=== PATIENT | female | born 1940 | race Hispanic/Latino ===

== ENCOUNTER 2018-10-17 20:39 | Emergency (ER) | payer MEDICARE, BC ==
[2018-10-17 20:50] VITALS: RESP 16; O2SAT 100
[2018-10-17] MEDS ORDERED: Tdap Vaccine 0.5 ml Vial (10-64 yrs) IM ONE ×2 (21:29→22:26)
--- NOTE | 2018-10-17 22:00 | ED PDOC ---
HPI: Skin/Bite Injury Time Seen by Provider: 10/17/18 21:00 Chief Complaint (Nursing): Abnormal Skin Integrity Chief Complaint (Provider): Abnormal Skin Integrity History Per: Patient History/Exam Limitations: no limitations Onset/Duration Of Symptoms: Mins Current Symptoms Are (Timing): Still Present Additional Complaint(s): Patient is a 77 y/o female with a past medical history of rheumatoid arthritis who presents to the ED for evaluation of a laceration on the third digit of right hand, onset earlier tonight. Patient was opening a can when she sliced her finger on the can lid. Patient reports to have cleaned the cut with peroxide [employer]. Patient reports her finger is "sore" surrounding the laceration site. Of note, patient last received a Tetanus shot over ten years ago. PCP: Dr. Pierre Sosa Past Medical History Reviewed: Historical Data, Nursing Documentation, Vital Signs Vital Signs: Last Vital Signs Temp 97.4 F L 10/17/18 20:46 Pulse 98 H 10/17/18 20:46 Resp 16 10/17/18 20:46 BP 168/82 H 10/17/18 20:46 Pulse Ox 100 10/17/18 20:46 - Medical History PMH: Arthritis (RA ) - Surgical History Surgical History: Appendectomy, Tonsillectomy Other surgeries: hysterectomy - Family History Family History: States: No Known Family Hx - Immunization History Hx Tetanus Toxoid Vaccination: No (last received over ten years ago) - Home Medications Home Medications: Ambulatory Orders Medication Instructions Recorded Acetaminophen [Acetaminophen 8 650 mg PO Q8 PRN #21 tablet.er 10/17/18 Hour] - Allergies Allergies/Adverse Reactions: Allergies Allergy/AdvReac Type Severity Reaction Status Date / Time No Known Allergies Allergy Verified 10/17/18 20:46 Review of Systems ROS Statement: Except As Marked, All Systems Reviewed And Found Negative Musculoskeletal: Positive for: Hand Pain (right, third digit finger is sore) Skin: Positive for: Other (laceration on right, third digit finger of right hand) Physical Exam - Reviewed Nursing Documentation Reviewed: Yes Vital Signs Reviewed: Yes - Physical Exam Comments: GENERAL APPEARANCE: Patient is awake, alert, oriented x 3, resting comfortably. SKIN: Warm, dry; (-) cyanosis. EYES: (-) conjunctival pallor, (-) scleral icterus. ENMT: Mucous membranes moist. Airway patent, (-) stridor. NECK: Supple CHEST AND RESPIRATORY: (-) rales, (-) rhonchi, (-) wheezes; breath sounds equal bilaterally. Respirations even and nonlabored. HEART AND CARDIOVASCULAR: (-) irregularity EXTREMITIES: To the dorsum of right 3rd PIP there is a 0.75 cm linear, horizontal laceration (-) active bleeding (+) mild surrounding ecchymosis(-) effusion (-) tenderness (-) bony deformity (-) edema. Full ROM. Sensation and cap refill intact. NEURO AND PSYCH: Mental status as above; (-) focal findings. Gait: steady. Speech: clear. (-) facial asymmetry - ECG O2 Sat by Pulse Oximetry: 100 (RA) Pulse Ox Interpretation: Normal Medical Decision Making Medical Decision Making: Time: 2129 Impression: Finger Laceration Plan: Adacel 0.5 ml IM Dermabond Re-evaluation Time: 2134 Wound soaked in Saline and Betadine solution prior to Dermabond closure. Time: 2199 Wound closed with Dermabond by Giselle SIMMS. Patient tolerated procedure well; no complications. Educated on adhesive wound care. Patient placed in aluminum finger splint to minimize flexion as laceration site over DIP. Repeat BP: 154/80 Lab / Diagnostic results d/w the patient in great detail. Diagnosis of finger laceration d/w the patient. Based on history, exam and diagnostic results, plan will be for outpatient follow up with PMD for wound check in 48 hours. Patient instructed to follow-up with pmd / referral provided / the clinic in 1- 2 days without fail. Advised to take medication as prescribed. Return to the emergency room at any time for any new or worsening symptoms. Patient states she fully agrees with and understands discharge instructions. States that she agrees with the plan and disposition. Verbalized and repeated discharge instructions and plan. I have given the patient opportunity to ask any additional questions. Scribe Attestation: Documented by Boaz Garcia, acting as a scribe for SIDDHARTH Cummings. Provider Scribe Attestation: All medical record entries made by the Scribe were at my direction and personally dictated by me. I have reviewed the chart and agree that the record accurately reflects my personal performance of the history, physical exam, medical decision making, and the department course for this patient. I have also personally directed, reviewed, and agree with the discharge instructions and disposition. Disposition - Clinical Impression Clinical Impression: Finger laceration - Patient ED Disposition Is Patient to be Admitted: No Counseled Patient/Family Regarding: Studies Performed, Diagnosis, Need For Followup, Rx Given - Disposition Referrals: primary, doctor [Other] Disposition: Routine/Home Disposition Time: 22:00 Condition: STABLE Additional Instructions: FOLLOW UP WITH PMD IN 48 HOURS FOR WOUND CHECK. The emergency medical care you received today was directed at your acute symptoms. If you were prescribed any medication, please fill it and take as directed. It may take several days for your symptoms to resolve. Return to the Emergency Department if your symptoms worsen, do not improve, or if you have any other problems. Please contact your doctor in 2 days for re-evaluation and follow up / or call one of the physicians/clinics you have been referred to that are listed on the Patient Visit Information form that is included in your discharge packet. Bring any paperwork you were given at discharge with you along with any medications you are taking to your follow up visit. Our treatment cannot replace ongoing medical care by a primary care provider (PCP) outside of the emergency department. Prescriptions: Acetaminophen [Acetaminophen 8 Hour] 650 mg PO Q8 PRN #21 tablet.er PRN Reason: Pain, Moderate (4-7) Instructions: Laceration Repair With Glue (DC), Wound Care, Common Finger Injuries Forms: [employer] ([place]) Print Language: SET[place] - POA Present On Arrival: None
[2018-10-17 22:15] VITALS: BP 154/80; PULSE 88; TEMP 97.8
== END 2018-10-17 23:30 | disposition home or self-care (01) ==
LOC: H.ER 20:39
DX: S61.212A Laceration without foreign body of right middle finger without damage to nail, initial encounter (principal); W26.8XXA Contact with other sharp object(s), not elsewhere classified, initial encounter; Y92.89 Other specified places as the place of occurrence of the external cause

== ENCOUNTER 2018-10-21 17:57 | Emergency (ER) | payer MEDICARE, BC ==
[2018-10-21 18:05] VITALS: RESP 18; O2SAT 99
--- NOTE | 2018-10-21 18:49 | ED PDOC ---
HPI: Wound Care - HPI Time Seen by Provider: 10/21/18 18:11 Chief Complaint (Nursing): Wound Check Chief Complaint (Provider): Wound check History Per: Patient Exam Limitations: no limitations Onset/Duration Of Symptoms: Days (1x) Current Symptoms Are (Timing): Gone Now Severity: Moderate Additional Complaint(s): 77 year old female with no pertinent past medical history presents to the ED for a wound check. Patient was seen in the ED 4x days ago for a laceration repair of the right 3rd digit. Laceration was repaired with surgical glue, and this morning she noticed mild bleeding, returning to ED for a reevaluation. No active bleeding in ED. PMD: Pierre Sosa MD Past Medical History Reviewed: Historical Data, Nursing Documentation, Vital Signs Vital Signs: Last Vital Signs Temp 97.4 F L 10/21/18 17:59 Pulse 99 H 10/21/18 17:59 Resp 18 10/21/18 17:59 BP 172/80 H 10/21/18 17:59 Pulse Ox 99 10/21/18 17:59 SAMMI Report Viewed: Yes - Medical History PMH: Arthritis (RA ) - Surgical History Surgical History: Appendectomy, Tonsillectomy Other surgeries: hysterectomy - Family History Family History: States: No Known Family Hx - Social History Current smoker - smoking cessation education provided: No Alcohol: None Drugs: Denies - Immunization History Hx Tetanus Toxoid Vaccination: No (last received over ten years ago) - Home Medications Home Medications: Ambulatory Orders Medication Instructions Recorded Acetaminophen [Acetaminophen 8 650 mg PO Q8 PRN #21 tablet.er 10/17/18 Hour] - Allergies Allergies/Adverse Reactions: Allergies Allergy/AdvReac Type Severity Reaction Status Date / Time No Known Allergies Allergy Verified 10/21/18 18:05 Review of Systems ROS Statement: Except As Marked, All Systems Reviewed And Found Negative Skin: Positive for: Other (right third digit laceration bleeding this morning. No active bleeding in ED) Physical Exam - Reviewed Nursing Documentation Reviewed: Yes Vital Signs Reviewed: Yes - Physical Exam Appears: Positive for: Well, Non-toxic, No Acute Distress Head Exam: Positive for: ATRAUMATIC, NORMOCEPHALIC Skin: Positive for: Normal Color, Warm, Dry Cardiovascular/Chest: Positive for: Regular Rate, Rhythm Respiratory: Positive for: Normal Breath Sounds Extremity: Positive for: Other (right 4rd digit: edges remain in tact. (-) infection, (-) drainage, (-) discharge, (-) erythema, (-) swelling.) Neurologic/Psych: Positive for: Alert, Oriented (3x) - ECG O2 Sat by Pulse Oximetry: 99 (RA) Pulse Ox Interpretation: Normal Medical Decision Making Medical Decision Makin:11 Initial impression: 77 year old female in the ED for a wound check Provided patient a finger splint to keep digit straight while edges continue to heal. Scribe Attestation: Documented byJovana Branham, acting as a scribe for Kvng Ramirez PA-C. Provider Scribe Attestation: All medical record entries made by the Scribe were at my direction and personally dictated by me. I have reviewed the chart and agree that the record accurately reflects my personal performance of the history, physical exam, [facility] decision making, and the department course for this patient. I have also personally directed, reviewed, and agree with the discharge instructions and disposition. Disposition - Clinical Impression Clinical Impression: Encounter for wound re-check - Disposition Referrals: Pierre Sosa MD [Family Provider] - Disposition Time: 17:57 Condition: STABLE Instructions: Laceration Repair With Glue (DC) Forms: [employer] ([place])
[2018-10-21 19:16] VITALS: BP 142/73; PULSE 88; TEMP 98
== END 2018-10-21 19:00 | disposition home or self-care (01) ==
LOC: H.ER 17:57
DX: Z48.01 Encounter for change or removal of surgical wound dressing (principal); M06.9 Rheumatoid arthritis, unspecified; Z90.710 Acquired absence of both cervix and uterus